=== PATIENT | female | born 1995 | race Caucasian/White ===

== ENCOUNTER 2016-11-16 01:35 | Emergency (ER) | payer MEDICAID, OTHER ==
[2016-11-16 01:39] VITALS: TEMP 97.9; O2SAT 100
[2016-11-16 01:47] VITALS: BP 109/76; PULSE 102; RESP 18
== END 2016-11-16 02:06 | disposition home or self-care (01) | DRG 153 ==
LOC: ED 01:35
DX: J06.9 Acute upper respiratory infection, unspecified (principal)
CPT/HCPCS: 99282

== ENCOUNTER 2017-02-20 23:31 | Emergency (ER) | payer OTHER ==
[2017-02-21 00:20] VITALS: BP 129/87; PULSE 93; RESP 18; TEMP 98.9; O2SAT 98
== END 2017-02-21 02:05 | disposition home or self-care (01) ==
LOC: ED 23:31
DX: S60.211A Contusion of right wrist, initial encounter (principal); S90.01XA Contusion of right ankle, initial encounter; W20.8XXA Other cause of strike by thrown, projected or falling object, initial encounter
CPT/HCPCS: 73110; 73610; 99282

== ENCOUNTER 2017-03-29 22:14 | Emergency (ER) | payer OTHER ==
[2017-03-29 22:18] VITALS: BP 141/86; PULSE 87; RESP 18; TEMP 97.5; O2SAT 99
== END 2017-03-29 22:35 | disposition home or self-care (01) ==
LOC: ED 22:14
DX: L23.3 Allergic contact dermatitis due to drugs in contact with skin (principal)
CPT/HCPCS: 99282

== ENCOUNTER 2017-03-31 22:38 | Emergency (ER) | payer OTHER ==
[2017-03-31 22:39] VITALS: O2SAT 99
[2017-03-31 22:44] VITALS: BP 139/95; PULSE 70; RESP 18; TEMP 97.9
[2017-03-31] MEDS ORDERED: KETOROLAC TROMETHAMINE 30 MG/ML SOL IM ONE (23:02)
[2017-03-31] MEDS ORDERED: KETOROLAC TROMETHAMINE 30 MG/ML SOL ONE (23:04)
[2017-03-31 23:20] LABS: APPEARANCE,URINE Slightly Cloudy; BILIRUBIN,URINE 1+ (NEGATIVE); COLOR,URINE Yellow; GLUCOSE, URINE (UA) NEGATIVE (NEGATIVE); KETONES,URINE 2+ (NEGATIVE); LEUKOCYTE ESTERASE ,URINE 2+ (NEGATIVE); NITRATE,URINE NEGATIVE (NEGATIVE); OCCULT BLOOD,URINE 2+ (NEG-TRACE)
[2017-03-31 23:36] LABS: ICTOTEST,URINE NEGATIVE (NEGATIVE)
[2017-03-31] MEDS ORDERED: LEVOFLOXACIN 500 MG TAB PO ONE (23:44)
[2017-03-31] MEDS ORDERED: LEVOFLOXACIN 500 MG TAB ONE (23:45)
== END 2017-03-31 23:49 | disposition home or self-care (01) ==
LOC: ED 22:38
DX: M54.9 Dorsalgia, unspecified (principal); R82.71 Bacteriuria
CPT/HCPCS: 99283 ×3; 87088; J1885; 81001; 96372; 99284

== ENCOUNTER 2017-05-18 18:27 | Emergency (ER) | payer SELFPAY ==
[2017-05-18 18:58] VITALS: RESP 20; TEMP 100.6
[2017-05-18 20:09] VITALS: BP 108/84; PULSE 104; O2SAT 100
== END 2017-05-18 19:57 | disposition home or self-care (01) | DRG 153 ==
LOC: ED 18:27
DX: J30.1 Allergic rhinitis due to pollen (principal)
CPT/HCPCS: 99282

== ENCOUNTER 2017-12-31 23:18 | Emergency (ER) | payer SELFPAY ==
[2017-12-31] MEDS ORDERED: ACETAMINOPHEN 325 MG PO ONE (23:28)
[2017-12-31 23:41] VITALS: RESP 18
[2017-12-31 23:58] LABS: APPEARANCE,URINE Slightly Cloudy; BILIRUBIN,URINE NEGATIVE (NEGATIVE); COLOR,URINE Yellow; GLUCOSE, URINE (UA) NEGATIVE (NEGATIVE); KETONES,URINE NEGATIVE (NEGATIVE); LEUKOCYTE ESTERASE ,URINE TRACE (NEGATIVE); NITRATE,URINE NEGATIVE (NEGATIVE); OCCULT BLOOD,URINE TRACE INTACT (NEG-TRACE)
[2018-01-01 00:03] LABS: ALBUMIN 3.5 gm/dl (3.4-5.0); BILIRUBIN,TOTAL 0.4 mg/dl (0.2-1.0); CALCIUM 8.5 mg/dl (8.5-10.1); CARBON DIOXIDE 31.1 mEq/L (21-32); CREATININE 0.73 mg/dl (0.60-1.00); HEMATOCRIT 40 % (35-47); HEMOGLOBIN 14.1 gm/dl (12.0-15.5); MEAN CORPUSCULAR HEMOGLOBIN 30.8 pg (27.0-32.0); MEAN CORPUSCULAR HGB CONC 35.5 gm/dl (32.0-36.0); MEAN CORPUSCULAR VOLUME 87 fL (81-99); POTASSIUM 3.7 mMol/L (3.5-5.1); TOTAL PROTEIN 6.7 gm/dl (6.4-8.2)
[2018-01-01 00:13] LABS: BACTERIA 1+ (< 1+); CRYSTALS NEGATIVE (0-3 AVE/HPF); EPITHELIAL CELLS MANY CLUMPS (SQUAMOUS); RBC,URINE NEG (0-3AV/HPF)
[2018-01-01 00:26] LABS: LYMPHOCYTES % (MANUAL) 48 % (10-50); MONOCYTES % (MANUAL) 7 % (0-12); NEUTROPHILS % (MANUAL) 45 % (37-80); NORMAL RBCS NORMAL RBCS; PLATELET MORPHOLOGY COMMENT NORMAL
[2018-01-01] MEDS ORDERED: ACETAMINOPHEN 325 MG ONE (01:05)
[2018-01-01] MEDS ORDERED: MORPHINE SULFATE 10 MG/ML SOL IV ONE (01:30)
[2018-01-01] MEDS ORDERED: ONDANSETRON HCL 4 MG/2 ML SOL IV ONE (01:30)
[2018-01-01] MEDS ORDERED: SODIUM CHLORIDE 0.9% 500 ML SOL IV ONE (01:31)
[2018-01-01] MEDS ORDERED: MORPHINE SULFATE 10 MG/ML SOL ONE (01:40)
[2018-01-01] MEDS ORDERED: ONDANSETRON HCL 4 MG/2 ML SOL ONE (01:41)
[2018-01-01 03:41] VITALS: BP 107/79; PULSE 76; TEMP 97.8; O2SAT 97
[2018-01-01 07:31] LABS: BAND NEUTROPHILS % (MANUAL) 0 %; BASOPHILS % (MANUAL) 0 % (0-3); EOSINOPHILS % (MANUAL) 0 % (0-9)
== END 2018-01-01 03:05 | disposition home or self-care (01) | DRG 392 ==
LOC: ED 23:18
DX: R10.32 Left lower quadrant pain (principal); R11.2 Nausea with vomiting, unspecified
CPT/HCPCS: 36415; 74177; 80053; 81001; 84703; 85007; 85027; 87088; 96365; 96374; 96375; 99282; 99285; J2270; J2405; Q9967

== ENCOUNTER 2018-06-12 23:26 | Emergency (ER) | payer SELFPAY ==
[2018-06-12 23:57] VITALS: RESP 18
[2018-06-13] MEDS ORDERED: KETOROLAC TROMETHAMINE 30 MG/ML SOL IM ONE (00:01)
[2018-06-13] MEDS ORDERED: ONDANSETRON 4 MG ODT BU ONE (00:01)
[2018-06-13] MEDS ORDERED: KETOROLAC TROMETHAMINE 30 MG/ML SOL ONE (00:12)
[2018-06-13] MEDS ORDERED: ONDANSETRON HCL 4 MG TAB ONE (00:12)
[2018-06-13 00:13] LABS: APPEARANCE,URINE Slightly Cloudy; BILIRUBIN,URINE NEGATIVE (NEGATIVE); COLOR,URINE Dark yellow; GLUCOSE, URINE (UA) NEGATIVE (NEGATIVE); KETONES,URINE NEGATIVE (NEGATIVE); LEUKOCYTE ESTERASE ,URINE TRACE (NEGATIVE); NITRATE,URINE NEGATIVE (NEGATIVE); OCCULT BLOOD,URINE NEGATIVE (NEG-TRACE); UROBILINOGEN,URINE 0.2 (0.2-1.0 EU)
[2018-06-13 00:28] LABS: BACTERIA 2+ (< 1+); CRYSTALS NEGATIVE (0-3 AVE/HPF); RBC,URINE 0-2 (0-3AV/HPF)
[2018-06-13] MEDS ORDERED: APAP/HYDROCODONE 325/5 TAB PO ONE (01:13)
[2018-06-13] MEDS ORDERED: CIPROFLOXACIN HCL 500 MG TAB PO SCH (01:15)
[2018-06-13] MEDS ORDERED: CIPROFLOXACIN HCL 500 MG TAB PO ONE (01:16)
[2018-06-13] MEDS ORDERED: APAP/HYDROCODONE 325/5 TAB ONE (01:16)
[2018-06-13 01:34] VITALS: TEMP 97.7
[2018-06-13 01:35] VITALS: BP 113/74; PULSE 85; O2SAT 96
== END 2018-06-13 01:30 | disposition home or self-care (01) | DRG 690 ==
LOC: ED 23:26
DX: N39.0 Urinary tract infection, site not specified (principal)
CPT/HCPCS: 74176; 81001; 84703; 87088; 96372; 99283; 99284; J1885; A9270-GY

== ENCOUNTER 2018-07-19 20:17 | Emergency (ER) | payer SELFPAY ==
[2018-07-19 20:31] VITALS: BP 122/88; RESP 18; O2SAT 100
[2018-07-19 20:43] LABS: APPEARANCE,URINE Clear; BILIRUBIN,URINE NEGATIVE (NEGATIVE); COLOR,URINE Yellow; GLUCOSE, URINE (UA) NEGATIVE (NEGATIVE); KETONES,URINE NEGATIVE (NEGATIVE); LEUKOCYTE ESTERASE ,URINE 1+ (NEGATIVE); NITRATE,URINE NEGATIVE (NEGATIVE); OCCULT BLOOD,URINE NEGATIVE (NEG-TRACE)
[2018-07-19 20:47] LABS: BACTERIA 2+ (< 1+); CRYSTALS NEGATIVE (0-3 AVE/HPF); EPITHELIAL CELLS 15-20 (SQUAMOUS); RBC,URINE 0-2 (0-3AV/HPF)
[2018-07-19] MEDS ORDERED: KETOROLAC TROMETHAMINE 30 MG/ML SOL IM ONE (21:07)
[2018-07-19] MEDS ORDERED: KETOROLAC TROMETHAMINE 30 MG/ML SOL ONE (21:14)
== END 2018-07-19 21:38 | disposition home or self-care (01) | DRG 392 ==
LOC: ED 20:17
DX: R10.9 Unspecified abdominal pain (principal)
CPT/HCPCS: 81001; 84703; 87088; 96372; 99282; J1885

== ENCOUNTER 2019-01-15 01:45 | Emergency (ER) | payer SELFPAY ==
[2019-01-15 02:01] VITALS: TEMP 98.4
[2019-01-15] MEDS: ACETAMI/HYDROCO 325/10 TAB PO ONE ×2 (02:11→03:15)
[2019-01-15] MEDS ORDERED: APAP/HYDROCODONE 1 EACH TABLET ONE (03:14)
[2019-01-15] MEDS ORDERED: APAP/HYDROCODONE 1 EACH TABLET PO ONE (03:15)
[2019-01-15 04:18] VITALS: BP 108/74; PULSE 88; RESP 18; O2SAT 96
== END 2019-01-15 04:17 | disposition home or self-care (01) | DRG 605 ==
LOC: ED 01:45
DX: S50.01XA Contusion of right elbow, initial encounter (principal); W10.9XXA Fall (on) (from) unspecified stairs and steps, initial encounter; O24.439 Gestational diabetes mellitus in the puerperium, unspecified control
CPT/HCPCS: 73060; 73090; 84703; 99283; A9270-GY

== ENCOUNTER 2019-02-19 15:44 | Emergency (ER) | payer MEDICAID ==
[2019-02-19 16:50] VITALS: RESP 20; O2SAT 100
[2019-02-19 17:30] LABS: BASOPHILS % (AUTO) 0 % (0-3); EOSINOPHILS % (AUTO) 2 % (0-9); HEMATOCRIT 40 % (35-47); HEMOGLOBIN 13.5 gm/dl (12.0-15.5); LYMPHOCYTES % (AUTO) 18.6 % (10-50); MEAN CORPUSCULAR HEMOGLOBIN 29.4 pg (27.0-32.0); MEAN CORPUSCULAR HGB CONC 33.5 gm/dl (32.0-36.0); MEAN CORPUSCULAR VOLUME 88 fL (81-99); MONOCYTES % (AUTO) 5.6 % (0-12); NEUTROPHILS % (AUTO) 73.5 % (37-80)
[2019-02-19] MEDS ORDERED: SODIUM CHLORIDE 0.9% 1000ML 1,000 ML IV SCH (17:30)
[2019-02-19 17:32] LABS: APPEARANCE,URINE Cloudy; BILIRUBIN,URINE NEGATIVE (NEGATIVE); COLOR,URINE Light yellow; GLUCOSE, URINE (UA) NEGATIVE (NEGATIVE); KETONES,URINE NEGATIVE (NEGATIVE); LEUKOCYTE ESTERASE ,URINE 1+ (NEGATIVE); NITRATE,URINE NEGATIVE (NEGATIVE); OCCULT BLOOD,URINE NEGATIVE (NEG-TRACE); PH,URINE 7.5
[2019-02-19 17:40] LABS: CARBON DIOXIDE 26.5 mEq/L (21-32); CREATININE 0.54 mg/dl (0.60-1.00); POTASSIUM 3.8 mMol/L (3.5-5.1)
[2019-02-19] MEDS ORDERED: ONDANSETRON HCL 4 MG/2 ML SOL ONE (17:40)
[2019-02-19 17:42] LABS: EPITHELIAL CELLS NEGATIVE (SQUAMOUS); RBC,URINE 0-1 (0-3AV/HPF); WBC,URINE 0-1 (0-5AV/HPF)
[2019-02-19 17:43] LABS: BACTERIA 2+ (< 1+); CRYSTALS 2+ (0-3 AVE/HPF)
[2019-02-19] MEDS: ONDANSETRON HCL 4 MG/2 ML SOL IV ONE (17:48)
[2019-02-19] MEDS: SODIUM CHLORIDE 0.9% FLUSH 10 ML SOL IV PRN (17:48)
[2019-02-19] MEDS: SODIUM CHLORIDE 0.9% 1000ML 1,000 ML IV ONE (17:50)
[2019-02-19 19:21] VITALS: BP 121/83; PULSE 78; TEMP 97.4
== END 2019-02-19 19:19 | disposition home or self-care (01) | DRG 833 ==
LOC: ED 15:44
DX: O21.9 Vomiting of pregnancy, unspecified (principal); Z3A.09 9 weeks gestation of pregnancy
CPT/HCPCS: 36415; 80048; 81001; 85025; 87088; 96365; 96374; 99282; 99284; J2405

== ENCOUNTER 2019-03-31 00:53 | Emergency (ER) | payer MEDICAID ==
[2019-03-31] MEDS ORDERED: METOCLOPRAMIDE HYDROCHLORIDE 5 MG/ML SOL IV ONE (01:10)
[2019-03-31] MEDS ORDERED: SODIUM CHLORIDE 0.9% 1000ML 1,000 ML IV ONE (01:10)
[2019-03-31] MEDS ORDERED: METOCLOPRAMIDE HYDROCHLORIDE 5 MG/ML SOL ONE (01:21)
[2019-03-31] MEDS ORDERED: ACETAMINOPHEN 500 MG 500 MG TAB PO ONE (01:30)
[2019-03-31 01:33] VITALS: RESP 18; TEMP 97.6
[2019-03-31 01:35] LABS: BASOPHILS % (AUTO) 1 % (0-3); EOSINOPHILS % (AUTO) 2 % (0-9); HEMATOCRIT 38 % (35-47); HEMOGLOBIN 13.3 gm/dl (12.0-15.5); LYMPHOCYTES % (AUTO) 24.7 % (10-50); MEAN CORPUSCULAR HEMOGLOBIN 30.8 pg (27.0-32.0); MEAN CORPUSCULAR HGB CONC 34.6 gm/dl (32.0-36.0); MEAN CORPUSCULAR VOLUME 89 fL (81-99); NEUTROPHILS % (AUTO) 68.5 % (37-80)
[2019-03-31 01:37] LABS: APPEARANCE,URINE Slightly Cloudy; BILIRUBIN,URINE NEGATIVE (NEGATIVE); COLOR,URINE Yellow; GLUCOSE, URINE (UA) NEGATIVE (NEGATIVE); KETONES,URINE 1+ (NEGATIVE); LEUKOCYTE ESTERASE ,URINE 2+ (NEGATIVE); NITRATE,URINE NEGATIVE (NEGATIVE); OCCULT BLOOD,URINE NEGATIVE (NEG-TRACE); UROBILINOGEN,URINE 0.2 (0.2-1.0 EU)
[2019-03-31] MEDS ORDERED: ACETAMINOPHEN 500 MG 500 MG TAB ONE (01:42)
[2019-03-31 01:45] LABS: ALBUMIN 3.2 gm/dl (3.4-5.0); BILIRUBIN,TOTAL 0.3 mg/dl (0.2-1.0); CALCIUM 8.4 mg/dl (8.5-10.1); CARBON DIOXIDE 25.8 mEq/L (21-32); CREATININE 0.42 mg/dl (0.60-1.00)
[2019-03-31 01:53] LABS: BACTERIA 1+ (< 1+); CRYSTALS 0-2 CALCIUM OXALATE (0-3 AVE/HPF); RBC,URINE 0-2 (0-3AV/HPF)
[2019-03-31 03:45] VITALS: BP 129/78; PULSE 87; O2SAT 98
== END 2019-03-31 03:11 | disposition home or self-care (01) | DRG 641 ==
LOC: ED 00:53
DX: E86.0 Dehydration (principal); N39.0 Urinary tract infection, site not specified; R52 Pain, unspecified; Z3A.14 14 weeks gestation of pregnancy; O24.419 Gestational diabetes mellitus in pregnancy, unspecified control
CPT/HCPCS: 80053; 81001; 85025; 87088; 96365; 96374; 99283; 99284; J2765